=== PATIENT | female | born 1980 | race Caucasian/White ===

== ENCOUNTER 2017-02-17 20:08 | Emergency (ER) | payer OTHER ==
[2017-02-17 20:18] VITALS: BP 123/75
[2017-02-17] MEDS ORDERED: Ondansetron 4 MG/2 ML SDV IVPUSH ONE (20:45)
[2017-02-17] MEDS ORDERED: Famotidine 20 MG/2 ML SDV IVPUSH ONE (20:45)
[2017-02-17] MEDS ORDERED: Sodium Chloride 0.9% 10 ML Syringe FLUSH PRN (20:45)
[2017-02-17] MEDS ORDERED: Sodium Chloride 0.9% 1,000 ML IV SCH (20:45)
--- NOTE | 2017-02-17 21:24 | EDM.PDOC ---
ED HPI GENERAL MEDICAL PROBLEM - General Chief Complaint: Abdominal Pain Stated Complaint: FEVER AND STOMACH PAIN Time Seen by Provider: 02/17/17 20:24 Source of Information: Reports: Patient, RN Notes Reviewed - History of Present Illness INITIAL COMMENTS - FREE TEXT/NARRATIVE: 36-year-old female comes in with generalized abdominal discomfort. Started 2 days ago. she has had continued pain and cramping yesterday and today. She did have dry heaves at least once or twice yesterday. Some loose stools but not watery diarrhea. She has had a low-grade fever. She does have history of prior appendicitis and that was removed many years ago. Her pain has been fairly generalized but somewhat more on the left than the right. No voiding symptomatology. History of prior kidney stones. She and her did eat some sushi shortly before she started becoming ill and they also have been eating some "raw salmon" from [place] that has been consulted. Her has been eating the same food and has had no sign of illness yet. 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: Reports: Musculoskeletal History: Reports: None Other Musculoskeletal History: scholiosis Oncologic (Cancer) History: Reports: None - Past Surgical History GI Surgical History: Reports: Appendectomy - History Comment History Comment: vits , calcium and iron Social & Family History - Family History Family Medical History: Noncontributory - Tobacco Use Smoking Status *Q: Never Smoker Second Hand Smoke Exposure: No - Caffeine Use Caffeine Use: Reports: None - Alcohol Use Days Per Week of Alcohol Use: 0 - Recreational Drug Use Recreational Drug Use: No ED ROS GENERAL - Review of Systems Review Of Systems: See Below Constitutional: Reports: Fever, Chills (Low-grade) HEENT: Denies: Sinus Problem, Throat Pain Respiratory: Denies: Shortness of Breath Cardiovascular: Denies: Chest Pain GI/Abdominal: Reports: Abdominal Pain, Diarrhea (Mild), Nausea, Vomiting Musculoskeletal: Reports: Other (Generalized achiness) Skin: Denies: Rash ED EXAM, GI/ABD - Physical Exam Exam: See Below General Appearance: Alert, Mild Distress Eyes: Bilateral: Normal Appearance Nose: Normal Inspection Throat/Mouth: Normal Inspection, Normal Oropharynx Head: No: Facial Swelling Neck: Supple, Full Range of Motion Respiratory/Chest: No Respiratory Distress, Lungs Clear, Normal Breath Sounds. No: Rhonchi, Wheezing Cardiovascular: Regular Rate, Rhythm GI/Abdominal Exam: Tender (Mild diffuse tenderness), Other (Very active bowel sounds). No: Guarding, Rebound Back Exam: No: CVA Tenderness (L), CVA Tenderness (R) Extremities: Normal Inspection, Normal Range of Motion Neurological: Alert, Oriented, No Motor/Sensory Deficits Skin Exam: Warm, Dry, Normal Color Course - Vital Signs Last Recorded V/S: Last Vital Signs Temp 99.0 F 02/17/17 20:15 Pulse 94 02/17/17 20:15 Resp 15 02/17/17 20:15 BP 123/75 02/17/17 20:15 Pulse Ox 96 02/17/17 20:15 - Orders/Labs/Meds Orders: Active Orders 24 hr Category Date Time Status Peripheral IV Care [RC] . DIRECTED Care 02/17/17 20:46 Active Abdomen 2V AP Flat Upright [CR] Stat Exams 02/17/17 20:46 Taken Peripheral IV Insertion Adult [OM.PC] Stat Oth 02/17/17 20:45 Ordered Labs: Laboratory Tests 02/17/17 02/17/17 02/17/17 Range/Units 20:25 20:25 20:45 WBC 22.14 H (3.98-10.04) K/mm3 RBC 4.60 (3.98-5.22) M/mm3 Hgb 13.8 (11.2-15.7) gm/L Hct 40.7 (34.1-44.9) % MCV 88.5 (79.4-94.8) fl MCH 30.0 (25.6-32.2) pg MCHC 33.9 (32.2-35.5) g/dl RDW Std Deviation 38.5 (36.4-46.3) fL Plt Count 310 (182-369) K/mm3 MPV 9.7 (9.4-12.3) fl Neut % (Auto) 81.4 H (34.0-71.1) % Lymph % (Auto) 10.0 L (19.3-51.7) % Gaines % (Auto) 8.1 (4.7-12.5) % Eos % (Auto) 0 L (0.7-5.8) Baso % (Auto) 0.1 (0.1-1.2) % Neut # (Auto) 18.02 H (1.56-6.13) K/mm3 Lymph # (Auto) 2.21 (1.18-3.74) K/mm3 Gaines # (Auto) 1.80 H (0.24-0.36) K/mm3 Eos # (Auto) 0.00 L (0.04-0.36) K/mm3 Baso # (Auto) 0.03 (0.01-0.08) K/mm3 Manual Slide Review Abnormal smear Sodium 139 (136-145) mEq/L Potassium 3.5 (3.5-5.1) mEq/L Chloride 103 (98-107) mEq/L Carbon Dioxide 24 (21-32) mEq/L Anion Gap 15.5 H (5-15) BUN 9 (7-18) mg/dL Creatinine 0.9 (0.55-1.02) mg/dL Est Cr Clr Drug Dosing 65.84 mL/min Estimated GFR (MDRD) > 60 (>60) mL/min BUN/Creatinine Ratio 10.0 L (14-18) Glucose 140 H (74-106) mg/dL Calcium 8.8 (8.5-10.1) mg/dL Total Bilirubin 0.6 (0.2-1.0) mg/dL AST 14 L (15-37) U/L ALT 18 (14-59) U/L Alkaline Phosphatase 69 (46-116) U/L Total Protein 7.0 (6.4-8.2) g/dl Albumin 3.6 (3.4-5.0) g/dl Globulin 3.4 gm/dL Albumin/Globulin Ratio 1.1 (1-2) Urine Color Yellow (Yellow) Urine Appearance Clear (Clear) Urine pH 6.5 (5.0-8.0) Ur Specific Huntley 1.010 (1.005-1.030) Urine Protein Negative (Negative) Urine Glucose (UA) Negative (Negative) Urine Ketones Negative (Negative) Urine Occult Blood Trace-lysed H (Negative) Urine Nitrite Negative (Negative) Urine Bilirubin Negative (Negative) Urine Urobilinogen 0.2 (0.2-1.0) Ur Leukocyte Esterase Negative (Negative) Urine RBC Not seen (0-5) /hpf Urine WBC 0-5 (0-5) /hpf Ur Epithelial Cells 5-10 H (0-5) /hpf Urine Bacteria Not seen (FEW) /hpf Urine Mucus Not seen (FEW) /hpf Meds: Medications Discontinued Medications Generic Name Dose Route Start Last Admin Trade Name Freq PRN Reason Stop Dose Admin Famotidine 20 mg 02/17/17 20:45 02/17/17 20:56 Pepcid IVPUSH 02/17/17 20:46 20 mg ONETIME ONE Administration Sodium Chloride 1,000 mls @ 999 mls/hr 02/17/17 20:45 02/17/17 20:54 Normal Saline IV 999 mls/hr ONETIME SREE Administration Ondansetron HCl 4 mg 02/17/17 20:45 02/17/17 20:54 Zofran IVPUSH 02/17/17 20:46 4 mg ONETIME ONE Administration Sodium Chloride 10 ml 02/17/17 20:45 02/17/17 20:56 Saline Flush FLUSH 10 ml ASDIRECTED PRN Administration Keep Vein Open - Re-Assessments/Exams Free Text/Narrative Re-Assessment/Exam: 02/17/17 23:10 White blood count did come back quite elevated at 22,000, x-rays of the abdomen show a lot of gas throughout the small and large intestine. There are a few very tiny borderline air-fluid levels. No major distention visualized to suggest bowel obstruction. She did have least one or 2 BM yesterday and also one or 2 times today. She has not been vomiting today. I really do think this is foodborne illness most likely from the sushi or perhaps from the raw salmon. Edematous start her on Cipro 500 mg twice daily for 5 days. Those much much better after the IV fluid and IV Zofran and Pepcid. Her pain is currently gone. Discharge instructions as documented Departure - Departure Time of Disposition: 22:00 Disposition: Home, Self-Care 01 Condition: Fair Clinical Impression: Colitis Abdominal pain Qualifiers: Abdominal location: generalized Qualified Code(s): R10.84 - Generalized abdominal pain - Discharge Information Prescriptions: Ciprofloxacin HCl [Cipro] 500 mg PO BID #10 tablet Ondansetron [Zofran ODT] 4 mg PO Q8H PRN #7 tab.dis PRN Reason: Nausea/Vomiting Instructions: Abdominal Pain, Adult, Colitis Referrals: Piedad Alanis MD [Primary Care Provider] - Forms: ED Department Discharge Additional Instructions: Clear liquids only until tomorrow evening, then very careful bland diet as tolerated when and if symptoms of abdominal pain resolving or at least improving. Zofran if needed for further nausea or vomiting. Probiotic twice daily for the next 5 days. Cipro antibiotic 500 mg twice daily for 5 days or until gone. Avoid milk and dairy products for the next 2 or 3 days. Follow-up clinic if not much better within 2-3 days, return to ED if symptoms worsening in any way - My Orders Last 24 Hours: My Active Orders 02/17/17 20:45 Peripheral IV Insertion Adult [OM.PC] Stat 02/17/17 20:46 Peripheral IV Care [RC] . DIRECTED Abdomen 2V AP Flat Upright [CR] Stat - Assessment/Plan Last 24 Hours: My Active Orders 02/17/17 20:45 Peripheral IV Insertion Adult [OM.PC] Stat 02/17/17 20:46 Peripheral IV Care [RC] . DIRECTED Abdomen 2V AP Flat Upright [CR] Stat
--- NOTE | 2017-02-18 07:06 | CR ---
Abdomen: Supine and upright views of the abdomen were obtained. Comparison: No prior study. Scattered gas within small bowel and colon are seen. Small bowel gas is at the upper limits of normal. Calcifications are seen within the pelvis which are felt compatible with phleboliths. No free air is seen. No bony abnormality identified. Impression: 1. Small bowel gas slightly prominent but felt to be at the upper limits of normal and incidental at this time. If patient continues to be symptomatic, follow-up study could then be considered. 2. Other incidental findings. Diagnostic code #2
== END 2017-02-17 22:25 | disposition home or self-care (01) ==
LOC: JD.ED 20:08
DX: K52.9 Noninfective gastroenteritis and colitis, unspecified (principal); Z87.440 Personal history of urinary (tract) infections; Z90.49 Acquired absence of other specified parts of digestive tract
CPT/HCPCS: 36415; 74020; 80053; 81001; 85025; 96361; 96374; 96375; 99284; J2405; J7040; J7050